=== PATIENT | male | born 1960 | race Caucasian/White ===

== ENCOUNTER 2020-08-13 18:28 | Inpatient (IN) | payer OTHER ==
[~2020-08-13] VITALS: Ht 162.6 cm; Wt 73.5 kg
[2020-08-13] MEDS ORDERED: SODIUM CHLORIDE FLUSH 10ML SYR IVF ONE (19:00)
--- NOTE | 2020-08-13 19:05 | NUR ---
PT BIB SPOUSE VIA POV, SENT FROM [facility] FOR R FOOT SWELLING & PAIN. PT STATES HE STEPPED ON THORN ABOUT A MONTH AGO, AND HAS HAD SWELLING AND PAIN FOR THE LAST COUPLE WEEKS. PT RESTING IN [place] AT BEDSIDE, [place] AT THIS TIME, [place].
[2020-08-13 19:19] LABS: MEAN CORPUSCULAR HEMOGLOBIN 32.8 pg (27.5-34.5); MEAN CORPUSCULAR HGB CONC 34.3 g/dL (33.2-36.2); MEAN PLATELET VOLUME 6.9 fL (7.4-10.4); PLATELET COUNT 331 x10^3/uL (130-400); RED BLOOD COUNT 5.25 x10^6/uL (4.38-5.82); RED CELL DISTRIBUTION WIDTH 13.1 % (9.4-14.8)
[2020-08-13 19:28] LABS: ALBUMIN 3.1 g/dL (3.4-5.0); ANION GAP 6 mmol/L (5-15); CALCIUM 8.7 mg/dL (8.5-10.1); CHLORIDE 105 mmol/L (98-107); CREATININE 0.95 mg/dL (0.7-1.3)
[2020-08-13 19:42] LABS: MD YES
[2020-08-13 19:46] LABS: BAND#(MANUAL) 0.35 x10^3/uL; BANDS%(MANUAL) 3 % (0-7); LYMPH#(MANUAL) 2.07 x10^3/uL (1-3.4); LYMPHS% (MANUAL) 18 % (22-44); MONOS#(MANUAL) 0.81 x10^3/uL (0.3-2.7); MONOS% (MANUAL) 7 % (2-9); SEG#(MANUAL) 8.28 x10^3/uL (1.8-6.8); SEGS% (MANUAL) 72 % (42-75)
[2020-08-13 19:47] LABS: <PLATELET ESTIMATE> ADEQUATE; <PLT MORPHOLOGY> NORMAL PLT MORPH; <RBC MORPHOLOGY> NORMAL
[2020-08-13] MEDS ORDERED: MORPHINE SULFATE 4 MG/ML, 1ML IVPush ONE (20:00)
[2020-08-13] MEDS ORDERED: MORPHINE SULFATE 4 MG/ML, 1ML ONE (20:03)
[2020-08-13 20:16] LABS: HCT (SEDRATE) 50.1 % (39.2-51.8)
[2020-08-13 20:42] VITALS: BP 139/96
[2020-08-13] MEDS ORDERED: DOCUSATE 100 MG CAPSULE PO PRN (21:00)
[2020-08-13] MEDS ORDERED: ACETAMINOPHEN 325 MG TABLET PO PRN ×2 (21:00→23:00)
[2020-08-13] MEDS ORDERED: VANCOMYCIN PER PHARMACY MC PRN (21:00)
[2020-08-13] MEDS: HEPARIN 5,000 UNITS/ML, 1ML SQ SCH (21:00)
[2020-08-13] MEDS: SODIUM CHLORIDE 0.9% 1,000 ML IV SCH (21:06)
[2020-08-13] MEDS: AMPICILLIN/SULBACTAM 3 GM in SODIUM CHLORIDE 0.9% 100 ML IV SCH (21:06)
[2020-08-13] MEDS ORDERED: PHARMACOKINETIC CONSULTATION MC ONE (21:30)
[2020-08-13] MEDS ORDERED: VANCOMYCIN 1,900 MG in SODIUM CHLORIDE 0.9% 250 ML IV ONE (21:30)
[2020-08-13] MEDS ORDERED: PHARMACOKINETIC MONITORING MC PRN (21:30)
[2020-08-13] MEDS ORDERED: FENTANYL PF 100 MCG/2ML ONE ×2 (22:19→23:06)
[2020-08-13] MEDS ORDERED: PROPOFOL 10 MG/ML, 20ML ONE (22:22)
[2020-08-13] MEDS ORDERED: PROMETHAZINE 25 MG/ML, 1ML IVPush PRN (23:00)
[2020-08-13] MEDS ORDERED: ONDANSETRON 2MG/ML, 2ML IVPush PRN (23:00)
[2020-08-13] MEDS ORDERED: DIPHENHYDRAMINE 50 MG/ML, 1ML IVPush PRN (23:00)
[2020-08-13] MEDS ORDERED: OXYcodone 5 MG/5 ML ORAL.SOL UDC PO PRN (23:00)
[2020-08-13] MEDS ORDERED: MIDAZOLAM 1 MG/ML, 2ML ONE (23:00)
[2020-08-13] MEDS ORDERED: KETOROLAC 30 MG/1 ML IVPush PRN (23:00)
[2020-08-13] MEDS ORDERED: MEPERIDINE/PF 25MG/0.5ML IVPush PRN (23:00)
[2020-08-13] MEDS ORDERED: OXYcodone 5 MG/5 ML ORAL.SOL UDC ONE (23:06)
[2020-08-13] MEDS: FENTANYL PF 100 MCG/2ML IV PRN ×2 (23:07→23:12)
[2020-08-13] MEDS ORDERED: DIAZEPAM 5 MG/ML, 2ML ONE (23:13)
[2020-08-13] MEDS: DIAZEPAM 5 MG/ML, 2ML IVPush PRN ×2 (23:16→23:29)
[2020-08-13] MEDS ORDERED: HYDROmorphone 1 MG/ML, 1ML INJ ONE ×2 (23:20→23:39)
[2020-08-13] MEDS: HYDROmorphone 1 MG/ML, 1ML INJ IVPush PRN ×3 (23:22→23:41)
[2020-08-14] VITALS (7 sets, daily range): BP systolic 110–152; BP diastolic 74–83
[2020-08-14] MEDS: HYDROcodone/APAP 5/325 TABLET PO PRN ×5 (01:01→21:09)
[2020-08-14] MEDS: morphine SULFATE 10 MG/ML, 1ML IVPush PRN ×4 (01:50→08:38)
[2020-08-14] MEDS: AMPICILLIN/SULBACTAM 3 GM in SODIUM CHLORIDE 0.9% 100 ML IV SCH ×4 (04:16→22:52)
[2020-08-14 05:40] LABS: BASOPHILS % (AUTO) 1 % (0-1); EOSINOPHILS % (AUTO) 1 % (1-7); LYMPHOCYTES % (AUTO) 13 % (22-44); MEAN CORPUSCULAR HEMOGLOBIN 32.6 pg (27.5-34.5); MEAN CORPUSCULAR HGB CONC 34.6 g/dL (33.2-36.2); MEAN PLATELET VOLUME 6.9 fL (7.4-10.4); MONOCYTES % (AUTO) 9 % (2-9); NEUTROPHILS % (AUTO) 77 % (42-75); PLATELET COUNT 285 x10^3/uL (130-400); RED BLOOD COUNT 4.47 x10^6/uL (4.38-5.82); RED CELL DISTRIBUTION WIDTH 12.8 % (9.4-14.8)
[2020-08-14 05:47] LABS: ANION GAP 7 mmol/L (5-15); CALCIUM 7.7 mg/dL (8.5-10.1); CHLORIDE 106 mmol/L (98-107)
[2020-08-14 05:48] LABS: CREATININE 0.77 mg/dL (0.7-1.3)
[2020-08-14 05:52] LABS: MD NO
[2020-08-14] MEDS ORDERED: POTASSIUM CHLORIDE 20 MEQ TAB.ER.PRT PO ONE (07:00)
[2020-08-14] MEDS: HEPARIN 5,000 UNITS/ML, 1ML SQ SCH ×2 (08:38→16:50)
[2020-08-14] MEDS ORDERED: FLUT9.9S INH (15:31)
[2020-08-14] MEDS ORDERED: COLC0.6C PO (15:31)
[2020-08-14] MEDS: SODIUM CHLORIDE 0.9% 1,000 ML IV SCH (16:57)
[2020-08-15 00:13] VITALS: BP 117/78
[2020-08-15] MEDS: VANCOMYCIN 1,500 MG in SODIUM CHLORIDE 0.9% 250 ML IV SCH (00:36)
[2020-08-15] MEDS: HEPARIN 5,000 UNITS/ML, 1ML SQ SCH ×3 (00:46→21:10)
[2020-08-15] MEDS: HYDROcodone/APAP 5/325 TABLET PO PRN (04:26)
[2020-08-15] MEDS: AMPICILLIN/SULBACTAM 3 GM in SODIUM CHLORIDE 0.9% 100 ML IV SCH ×4 (04:27→21:51)
[2020-08-15] MEDS: SODIUM CHLORIDE 0.9% 1,000 ML IV SCH ×2 (04:27→15:16)
[2020-08-15 04:49] LABS: BASOPHILS % (AUTO) 1 % (0-1); EOSINOPHILS % (AUTO) 2 % (1-7); LYMPHOCYTES % (AUTO) 17 % (22-44); MEAN CORPUSCULAR HEMOGLOBIN 32.8 pg (27.5-34.5); MEAN CORPUSCULAR HGB CONC 34.7 g/dL (33.2-36.2); MEAN PLATELET VOLUME 6.7 fL (7.4-10.4); MONOCYTES % (AUTO) 7 % (2-9); NEUTROPHILS % (AUTO) 73 % (42-75); PLATELET COUNT 268 x10^3/uL (130-400); RED BLOOD COUNT 4.34 x10^6/uL (4.38-5.82); RED CELL DISTRIBUTION WIDTH 12.6 % (9.4-14.8)
[2020-08-15 04:59] LABS: ANION GAP 4 mmol/L (5-15); CALCIUM 8.4 mg/dL (8.5-10.1); CHLORIDE 104 mmol/L (98-107)
[2020-08-15 05:07] LABS: MD NO
[2020-08-15 07:06] VITALS: BP 116/75
[2020-08-15 12:28] VITALS: BP 143/89
[2020-08-15] MEDS: morphine SULFATE 10 MG/ML, 1ML IVPush PRN (15:47)
[2020-08-15 18:51] VITALS: BP 147/89
[2020-08-16 00:26] VITALS: BP_SYST 147; BP_SYST 148; BP_DIAS 86; BP_DIAS 89
[2020-08-16] MEDS: VANCOMYCIN 1,500 MG in SODIUM CHLORIDE 0.9% 250 ML IV SCH (00:28)
[2020-08-16] MEDS: SODIUM CHLORIDE 0.9% 1,000 ML IV SCH ×3 (00:29→22:59)
[2020-08-16] MEDS: HYDROcodone/APAP 5/325 TABLET PO PRN ×3 (00:42→19:32)
[2020-08-16] MEDS: HEPARIN 5,000 UNITS/ML, 1ML SQ SCH ×3 (04:13→19:33)
[2020-08-16] MEDS: AMPICILLIN/SULBACTAM 3 GM in SODIUM CHLORIDE 0.9% 100 ML IV SCH (04:13)
[2020-08-16 06:58] VITALS: BP 144/86
[2020-08-16] MEDS: DAPTOMYCIN 500 MG in SODIUM CHLORIDE 0.9% 100 ML IV SCH (10:27)
[2020-08-16 12:29] VITALS: BP 146/88
[2020-08-16] MEDS: morphine SULFATE 10 MG/ML, 1ML IVPush PRN (15:10)
[2020-08-16 18:25] VITALS: BP 138/84
[2020-08-17 00:48] VITALS: BP 153/94
[2020-08-17] MEDS: HEPARIN 5,000 UNITS/ML, 1ML SQ SCH ×3 (04:09→19:29)
[2020-08-17 04:56] LABS: HCT (SEDRATE) 43.4 % (39.2-51.8)
[2020-08-17 05:00] LABS: BASOPHILS % (AUTO) 1 % (0-1); EOSINOPHILS % (AUTO) 4 % (1-7); LYMPHOCYTES % (AUTO) 18 % (22-44); MEAN CORPUSCULAR HEMOGLOBIN 32.8 pg (27.5-34.5); MEAN CORPUSCULAR HGB CONC 34.3 g/dL (33.2-36.2); MEAN PLATELET VOLUME 6.6 fL (7.4-10.4); MONOCYTES % (AUTO) 6 % (2-9); NEUTROPHILS % (AUTO) 71 % (42-75); PLATELET COUNT 294 x10^3/uL (130-400); RED BLOOD COUNT 4.52 x10^6/uL (4.38-5.82); RED CELL DISTRIBUTION WIDTH 12.8 % (9.4-14.8)
[2020-08-17 05:01] LABS: MD NO
[2020-08-17 05:11] LABS: CHLORIDE 104 mmol/L (98-107)
[2020-08-17 05:24] LABS: ANION GAP 6 mmol/L (5-15); CALCIUM 8.4 mg/dL (8.5-10.1); CREATININE 0.84 mg/dL (0.7-1.3)
[2020-08-17 07:35] VITALS: BP 150/89
[2020-08-17] MEDS: SODIUM CHLORIDE 0.9% 1,000 ML IV SCH ×2 (08:36→19:30)
[2020-08-17] MEDS: DAPTOMYCIN 500 MG in SODIUM CHLORIDE 0.9% 100 ML IV SCH (10:09)
[2020-08-17] MEDS: HYDROcodone/APAP 5/325 TABLET PO PRN ×2 (10:13→22:13)
[2020-08-17 12:37] VITALS: BP 144/86
[2020-08-17 19:35] VITALS: BP 161/91
[2020-08-18 01:50] VITALS: BP 134/87
[2020-08-18] MEDS: HEPARIN 5,000 UNITS/ML, 1ML SQ SCH ×3 (04:36→20:15)
[2020-08-18] MEDS: SODIUM CHLORIDE 0.9% 1,000 ML IV SCH ×2 (04:39→15:00)
[2020-08-18 06:54] VITALS: BP 149/92
[2020-08-18] MEDS: DAPTOMYCIN 500 MG in SODIUM CHLORIDE 0.9% 100 ML IV SCH (10:20)
[2020-08-18] MEDS: HYDROcodone/APAP 5/325 TABLET PO PRN (11:18)
[2020-08-18 12:44] VITALS: BP 136/85
[2020-08-18] MEDS: morphine SULFATE 10 MG/ML, 1ML IVPush PRN (13:16)
[2020-08-18 18:37] VITALS: BP 135/86
[2020-08-19 00:03] VITALS: BP 150/88
[2020-08-19] MEDS: SODIUM CHLORIDE 0.9% 1,000 ML IV SCH ×3 (01:29→22:39)
[2020-08-19] MEDS: HEPARIN 5,000 UNITS/ML, 1ML SQ SCH ×3 (04:28→19:56)
[2020-08-19] MEDS: HYDROcodone/APAP 5/325 TABLET PO PRN ×2 (04:34→19:57)
[2020-08-19 05:07] LABS: HCT (SEDRATE) 41.7 % (39.2-51.8)
[2020-08-19 06:51] VITALS: BP 138/83
[2020-08-19] MEDS: DAPTOMYCIN 500 MG in SODIUM CHLORIDE 0.9% 100 ML IV SCH (11:18)
[2020-08-19 12:26] VITALS: BP 151/89
[2020-08-19 18:51] VITALS: BP 153/87
[2020-08-20 00:21] VITALS: BP 129/83
[2020-08-20] MEDS: HYDROcodone/APAP 5/325 TABLET PO PRN ×2 (02:40→13:05)
[2020-08-20] MEDS: HEPARIN 5,000 UNITS/ML, 1ML SQ SCH (04:38)
[2020-08-20 07:00] VITALS: BP 150/87
[2020-08-20] MEDS: SODIUM CHLORIDE 0.9% 1,000 ML IV SCH (08:40)
[2020-08-20] MEDS: ENOXAPARIN 40 MG/0.4 ML SQ SCH (10:34)
[2020-08-20] MEDS: DAPTOMYCIN 500 MG in SODIUM CHLORIDE 0.9% 100 ML IV SCH (10:34)
[2020-08-20 14:19] VITALS: BP 148/90
[2020-08-20 19:05] VITALS: BP 151/82
[2020-08-21 02:05] VITALS: BP 128/76
[2020-08-21] MEDS: HYDROcodone/APAP 5/325 TABLET PO PRN ×3 (05:05→21:56)
[2020-08-21 05:14] LABS: BASOPHILS % (AUTO) 1 % (0-1); EOSINOPHILS % (AUTO) 2 % (1-7); LYMPHOCYTES % (AUTO) 15 % (22-44); MEAN CORPUSCULAR HEMOGLOBIN 32.7 pg (27.5-34.5); MEAN CORPUSCULAR HGB CONC 34.4 g/dL (33.2-36.2); MEAN PLATELET VOLUME 6.7 fL (7.4-10.4); MONOCYTES % (AUTO) 8 % (2-9); NEUTROPHILS % (AUTO) 74 % (42-75); PLATELET COUNT 325 x10^3/uL (130-400); RED BLOOD COUNT 4.73 x10^6/uL (4.38-5.82); RED CELL DISTRIBUTION WIDTH 12.8 % (9.4-14.8)
[2020-08-21 05:15] LABS: MD NO
[2020-08-21 05:20] LABS: HCT (SEDRATE) 44.7 % (39.2-51.8)
[2020-08-21 05:25] LABS: ANION GAP 8 mmol/L (5-15); CALCIUM 8.8 mg/dL (8.5-10.1); CHLORIDE 106 mmol/L (98-107)
[2020-08-21 07:02] VITALS: BP 115/72
[2020-08-21] MEDS: DAPTOMYCIN 500 MG in SODIUM CHLORIDE 0.9% 100 ML IV SCH (10:25)
[2020-08-21] MEDS: ENOXAPARIN 40 MG/0.4 ML SQ SCH (10:25)
[2020-08-21 12:36] VITALS: BP 132/84
[2020-08-21 18:34] VITALS: BP 114/75
[2020-08-22 01:04] VITALS: BP 110/75
[2020-08-22 04:58] LABS: BASOPHILS % (AUTO) 1 % (0-1); EOSINOPHILS % (AUTO) 3 % (1-7); LYMPHOCYTES % (AUTO) 19 % (22-44); MEAN CORPUSCULAR HEMOGLOBIN 32.5 pg (27.5-34.5); MEAN CORPUSCULAR HGB CONC 34.7 g/dL (33.2-36.2); MEAN PLATELET VOLUME 6.5 fL (7.4-10.4); MONOCYTES % (AUTO) 9 % (2-9); NEUTROPHILS % (AUTO) 68 % (42-75); PLATELET COUNT 330 x10^3/uL (130-400); RED BLOOD COUNT 4.86 x10^6/uL (4.38-5.82); RED CELL DISTRIBUTION WIDTH 12.8 % (9.4-14.8)
[2020-08-22 05:00] LABS: MD NO
[2020-08-22 05:03] LABS: HCT (SEDRATE) 45.6 % (39.2-51.8)
[2020-08-22 05:12] LABS: CHLORIDE 104 mmol/L (98-107)
[2020-08-22 05:27] LABS: ALANINE AMINOTRANSFERASE 35 U/L (12-78); ALBUMIN 2.9 g/dL (3.4-5.0); ALKALINE PHOSPHATASE 63 U/L (45-117); ANION GAP 6 mmol/L (5-15); BILIRUBIN,TOTAL 0.5 mg/dL (0.2-1.0); CREATININE 1.07 mg/dL (0.7-1.3)
[2020-08-22 07:35] VITALS: BP 134/85
[2020-08-22] MEDS: HYDROcodone/APAP 5/325 TABLET PO PRN ×2 (07:44→12:33)
[2020-08-22] MEDS: DAPTOMYCIN 500 MG in SODIUM CHLORIDE 0.9% 100 ML IV SCH (10:25)
[2020-08-22] MEDS: ENOXAPARIN 40 MG/0.4 ML SQ SCH (10:25)
[2020-08-22] MEDS ORDERED: HYDR-1067 PO ×2 (11:53→12:00)
[2020-08-22] MEDS ORDERED: DALBAVANCIN HCL IV ONE (12:00)
[2020-08-22] MEDS ORDERED: DEXTROSE 5% IV ONE (12:00)
[2020-08-22 13:58] VITALS: BP 129/83
== END 2020-08-22 18:24 | disposition home health service (06) | DRG 571 ==
LOC: ED 19:50 → 3N 20:29
PROVIDERS: ADMIT Family Medicine; ATTEND Family Medicine
PROC: 0J9Q0ZZ Drainage of Right Foot Subcutaneous Tissue and Fascia, Open Approach (ICD-10-PCS; 2020-08-13)
PROC: 0JBQ0ZZ Excision of Right Foot Subcutaneous Tissue and Fascia, Open Approach (ICD-10-PCS; principal; 2020-08-13 20:45)
DX: L02.611 Cutaneous abscess of right foot (principal); L03.115 Cellulitis of right lower limb; M10.9 Gout, unspecified; M71.161 Other infective bursitis, right knee; R09.02 Hypoxemia; S90.851A Superficial foreign body, right foot, initial encounter; W45.8XXA Other foreign body or object entering through skin, initial encounter; Z20.822 Contact with and (suspected) exposure to COVID-19; R33.9 Retention of urine, unspecified; B95.4 Other streptococcus as the cause of diseases classified elsewhere; B95.7 Other staphylococcus as the cause of diseases classified elsewhere; D72.829 Elevated white blood cell count, unspecified
CPT/HCPCS: 36415; 80048; 80053; 82040; 82550; 83605; 83735; 84550; 85025; 85651; 86140; 87070; 87075; 87077; 87147; 87186; 87205; 87635; 99285; G0378; J0295; J0878; J1170; J1644; J1650; J2250; J2704; J3010; J3360; J3370; J7060; J0875; J2270; J7030; J7050

== ENCOUNTER 2020-08-29 09:48 | Emergency (ER) | payer OTHER ==
[~2020-08-29] VITALS: Ht 162.6 cm; Wt 71.0 kg
[~2020-08-29 09:48] MED LIST: COLC0.6C PO; FLUT9.9S INH; HYDR-1067 PO
--- NOTE | 2020-08-29 09:57 | NUR ---
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
[2020-08-29 10:00] VITALS: BP 120/76
--- NOTE | 2020-08-29 10:05 | NUR ---
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
== END 2020-08-29 10:34 | disposition home or self-care (01) ==
LOC: ED 10:33
DX: L55.0 Sunburn of first degree (principal)
CPT/HCPCS: 99281

== ENCOUNTER → 2020-10-26 | Outpatient (CLI) | payer OTHER ==
[~2020-10-26] MED LIST changes: +GADOTERATE 7.5 MMOL/15ML SYR ONE; -HYDR-1067 PO; +HYDR-2214 PO
== END | disposition home or self-care (01) ==
LOC: CFH 15:26
PROVIDERS: ATTEND Orthopaedic Surgery
DX: L02.611 Cutaneous abscess of right foot (principal); L97.518 Non-pressure chronic ulcer of other part of right foot with other specified severity
CPT/HCPCS: 73720; A9575